=== PATIENT | female | born 1985 | race Caucasian/White ===

== ENCOUNTER 2016-12-12 11:48 | Outpatient (CLI) | payer OTHER ==
--- NOTE | 2016-12-12 13:21 | DIAGNOSTIC IMAGING REPORT ---
PROCEDURE: US COMPLETE PELVIC W/TRANSVAG INDICATION: PELVIC PAIN TECHNIQUE: Transabdominal and endovaginal fernández scale and color Doppler sonographic images of the female pelvis were obtained. COMPARISON: None. FINDINGS: TRANSABDOMINAL SCANS: The uterus is of normal size measuring 5 x 5.3 x 4 cm. Kidneys are normal. TRANSVAGINAL SCANS: The uterus is anteverted. Myometrium is normal. The endometrium measures 10.2 mm. Right ovary is normal measuring 5.8 x 2.7 x 2.4 cm. Good arterial and venous flow is noted. There is a 2.5 cm involuting cyst. The left ovary is normal measuring 3.1 x 2 x 1.3 cm. Good flow was noted. There is a trace of free fluid. IMPRESSION: 1. Normal uterus and kidneys. Enlarged right ovary with a 2.5 cm involuting cyst.
== END 2016-12-12 23:00 ==
LOC: US SRH 11:48
DX: N83.201 Unspecified ovarian cyst, right side (principal)